=== PATIENT | female | born 2000 | race Caucasian/White ===

== ENCOUNTER 2022-11-29 21:53 | Emergency (ER) | payer BC, SELFPAY ==
--- NOTE | ~2022-11-29 | XR_ITS ---
EXAMINATION: XR finger 5th LT min 2V INDICATION: Left fifth finger pain TECHNIQUE: Three views of the left fifth finger are obtained. COMPARISON: None available FINDINGS: There is a soft tissue laceration involving the tip of the finger. Bone alignment is normal . There is no fracture. The joint spaces are normal. IMPRESSION: 1. Soft tissue laceration in the tip of the fifth finger without underlying osseous abnormality. Reviewed, dictated and finalized at location A. [facility] P[facility]ER IMPRESSION: 1. Soft tissue laceration in the tip of the fifth finger without underlying oss eous abnormality.
[2022-11-29 22:00] VITALS: BP 140/69; PULSE 101; RESP 16; TEMP 36.6; O2SAT 100
--- NOTE | 2022-11-29 23:07 | PC.NURSE ---
Laceration to left pinky finger. Pt states she was peeling an orange and the florentin slipped, cutting her. Laceration begins in the middle of her nail bed and extends past the tip of her finger. Bleeding controlled. Wound cleansed with normal saline.
--- NOTE | 2022-11-30 01:55 | ED.WOUNDLAC ---
HPI - Wound/Laceration General Chief Complaint: Wound/Laceration Stated Complaint: Laceration on left pinky Time Seen by Provider: 11/29/22 23:01 Source: patient Mode of arrival: ambulatory Limitations: no limitations History of Present Illness HPI narrative: Patient is a 22-year-old female who presents the ED with report of laceration to left fifth digit. Patient reports she was at a mix allergy class earlier tonight and healing oranges with a vegetable florentin. She sustained a laceration to her left fifth digit, through her distal nail and nailbed, into the distal fingertip pad. Bleeding controlled by the time of my evaluation. Patient denies any other injuries. Tetanus status up-to-date. Denies numbness, tingling. Review of Systems Review of Systems: CONSTITUTIONAL: Denies fever, chills, or sweats. SKIN: See HPI. MUSCULOSKELETAL: See HPI. NEUROLOGIC: Denies tingling, numbness, or weakness. All systems reviewed & are unremarkable except as noted in HPI and below PMFSH Past Medical History Medical History (Updated 11/30/22 @ 04:12 by Gayatri Castillo PA-C) No pertinent past medical history Surgical History Surgical History (Updated 11/30/22 @ 04:12 by Gayatri Castillo PA-C) No pertinent past surgical history Social History Social History (Updated 11/30/22 @ 04:12 by Gayatri Castillo PA-C) Smoking status: Never smoker Exam Narrative: GENERAL: Well appearing, well-nourished, non-toxic, in no acute distress. HEAD: Normocephalic, atraumatic. NECK: Supple. No adenopathy, no masses. RESPIRATORY: Airway patent, respirations nonlabored. CARDIOVASCULAR: Regular rate and rhythm without murmurs, rubs, or gallops. Radial pulses 2+ and equal bilaterally. MUSCULOSKELETAL: Moves all extremities. Strength/ROM intact without gross deformities. Full ROM of L fingers. SKIN: Warm, dry, normal color. No rashes. Approximately 0.5 cm laceration of left fifth digit through distal nail, avulsing lateral corner of nail. Laceration appears to go through nailbed into the very distal finger pad. No active bleeding. Distal sensation intact. NEURO: A&O X3. Speech clear. Cranial nerves II-XII grossly intact. Steady gait. No ataxic movements. PSYCHIATRIC: Appropriate mood and affect. Normal interaction. Course Vital Signs Vital signs: Vital Signs Temperature 97.8 F 11/29/22 22:00 Pulse Rate 101 H 11/29/22 22:00 Respiratory Rate 16 11/29/22 22:00 Blood Pressure 140/69 11/29/22 22:00 Pulse Oximetry 100 11/29/22 22:00 Oxygen Delivery Room Air 11/29/22 22:00 Temperature 97.8 F 11/29/22 22:00 Pulse Rate 70 11/30/22 02:35 Respiratory Rate 14 11/30/22 02:35 Blood Pressure 110/60 11/30/22 02:35 Pulse Oximetry 100 11/30/22 02:35 Oxygen Delivery Room Air 11/29/22 22:00 Procedures Laceration Laceration 1: Date: 11/30/22 Time: 01:40 Site: hand (5th digit) Side (If applicable): left Size (cm): 0.5 Description: linear and other (through nail) Depth: simple, single layer Local Anesthetic: other anesthetic (digital block) Pre-repair: wound explored and irrigated ====== Skin Level ====== Skin layer closed with: nylon Size (cm): 5-0 Number of sutures: 2 (1 suture placed through distal finger pad, 1 through nail) Technique: simple, interrupted ====== Subcutaneous Layer ====== ====== Muscle Layer ====== ====== Tendon Layer ====== Nerve Block Nerve Block 1: Nerve block date: 11/30/22 Nerve block time: 01:30 Time out performed: Yes Local Anesthetic: lidocaine 1% Amount of anesthesia used (mL): 4 Side: left Nerve Blocks: digital (5th digit) Procedure Successful: Yes Patient Tolerated Procedure: well and no complications Complications: none MDM - Wound/Laceration MDM Narrative Medical decision making narrative: X-r
[2022-11-30 02:35] VITALS: BP 110/60; PULSE 70; RESP 14; O2SAT 100
--- NOTE | 2022-11-30 02:35 | PC.NURSE ---
Neosporin and bandaid applied to left pinky finger
== END 2022-11-30 02:36 | disposition home or self-care (01) ==
PROVIDERS: Emergency Provider Physician Assistant; PCP Family Medicine
DX: S61.317A Laceration without foreign body of left little finger with damage to nail, initial encounter (principal); W27.4XXA Contact with kitchen utensil, initial encounter
CPT/HCPCS: 12001; 73140; 99283